=== PATIENT | male | born 1965 | race Caucasian/White ===

== ENCOUNTER 2016-12-07 14:51 | Outpatient (CLI) | payer OTHER ==
--- NOTE | 2016-12-07 15:43 | DIAGNOSTIC IMAGING REPORT ---
PROCEDURE: XR KNEE 4 VIEWS - LEFT INDICATION: PAIN TECHNIQUE: Four views. COMPARISON: None. FINDINGS: Osseous structures and joint spaces are normal. IMPRESSION: 1. Normal left knee.
== END 2016-12-07 23:00 ==
LOC: XR SRH 14:51
DX: M25.562 Pain in left knee (principal)